=== PATIENT | female | born 2000 | race Two or more races ===

== ENCOUNTER 2024-11-28 16:28 | Emergency (ER) | payer SELFPAY ==
[2024-11-28 16:29] VITALS: BMI 24.2
[2024-11-28 17:36] VITALS: BP 106/54; PULSE 92; RESP 19; TEMP 36.7; O2SAT 96
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
[2024-11-28] MEDS: IBUPROFEN TAB 600 MG TABLET PO (18:19)
[2024-11-28] MEDS: AMOXICILLIN/POT CLAV 875 TABLET 1 TAB PO (18:19)
[2024-11-28] MEDS: DIPHTH,PERTUSS(ACELL),TET VAC 0.5 ML SYR- ADULT IMi (18:21)
== END 2024-11-28 19:02 | disposition home or self-care (01) ==
PROVIDERS: Emergency Provider Emergency Medicine; PCP Family Medicine
DX: L03.113 Cellulitis of right upper limb (principal); S60.511A Abrasion of right hand, initial encounter; W22.09XA Striking against other stationary object, initial encounter; Z23 Encounter for immunization
CPT/HCPCS: 73120; 90471; 90715; 99283; A9270